=== PATIENT | female | born 1970 | race Caucasian/White ===

== ENCOUNTER → 2017-05-10 | Outpatient (CLI) | payer OTHER, BC ==
--- NOTE | 2017-05-10 11:02 | DIAGNOSTIC IMAGING REPORT ---
RIGHT HAND MIN 3 VIEWS ROUTINE CLINICAL HISTORY: Right hand pain COMPARISON: None. DISCUSSION: No fractures or dislocations are visualized. There are no erosive or destructive changes. IMPRESSION: No fractures identified. No evidence of erosive disease. Electronically signed by: Paul Ryan M.D. 05/10/2017 11:00 AM Dictated Date/Time: 05/10/2017 10:59 AM
== END | disposition home or self-care (01) ==
LOC: C.RAD1850 10:21
PROVIDERS: ATTEND Nurse Practitioner Adult Health
DX: M79.641 Pain in right hand (principal)

== ENCOUNTER → 2017-11-03 | Outpatient (CLI) | payer OTHER ==
--- NOTE | 2017-11-03 08:07 | DIAGNOSTIC IMAGING REPORT ---
SOFT TISS HEAD/NECK-THYROID CLINICAL HISTORY: 47 years-old Female presenting with NON TOXIC GOITER. TECHNIQUE: Real-time grayscale and color Doppler ultrasound imaging of the thyroid and base of the neck was performed. COMPARISON: 07/07/2016. FINDINGS: Right lobe: The right lobe of the thyroid measures 4.3 x 1.5 x 1.1 cm. Previously noted dominant lower pole nodule, partially cystic, partially solid with fairly well-circumscribed margins and measuring 1.1 x 1.7 x 1.3 cm, previously 1.7 x 1.3 x 1.1 cm (very low suspicion pattern). No parenchymal hyperemia. Left lobe: The left lobe of the thyroid measures 4.0 x 1.2 x 1.3 cm. New subcentimeter hypoechoic posterior nodule at the upper pole (intermediate suspicion pattern) No parenchymal hyperemia. Isthmus: Previously noted dominant nodule is lobular and fairly well-defined, heterogeneously isoechoic and measuring 1.9 x 2.2 x 1.1 cm, previously 1.8 x 1.3 x 0.7 cm (low suspicion pattern). IMPRESSION: 1. Dominant nodule in the isthmus needs the [place] [employer] criteria for fine-needle aspiration based on size if this has not previously been performed. Electronically signed by: Sandip Brewster M.D. 11/03/2017 8:06 AM Dictated Date/Time: 11/03/2017 8:01 AM
== END | disposition home or self-care (01) ==
LOC: C.ULTR 07:20
PROVIDERS: ATTEND Family Medicine
DX: E04.9 Nontoxic goiter, unspecified (principal)